=== PATIENT | male | born 1950 | race Caucasian/White ===

== ENCOUNTER 2022-07-02 09:15 | Emergency (ER) | payer MEDICARE ==
[~2022-07-02] VITALS: Ht 170.2 cm; Wt 77.3 kg
[~2022-07-02 09:15] MED LIST: HYDR25TA4 PO; LISI5TAB22 PO; PER5325T PO; SERT50TA PO
[2022-07-02 09:59] LABS: BASOPHILS % (AUTO) 0.5 % (0-1); EOSINOPHILS # (AUTO) 0.1 X10'3 (0-0.9); EOSINOPHILS % (AUTO) 0.7 % (0-6); HEMOGLOBIN 13.9 g/dl (14.0-17.9); LYMPHOCYTES # (AUTO) 0.8 X10'3 (1.1-4.8); LYMPHOCYTES % (AUTO) 9.8 % (21-51); MEAN CORPUSCULAR HEMOGLOBIN 30.1 PG (27.0-31.0); MEAN CORPUSCULAR HGB CONC 33.1 g/dL (33.0-36.5); MEAN PLATELET VOLUME 7.7 FL (7.4-10.4); MONOCYTES # (AUTO) 0.5 X10'3 (0-0.9); MONOCYTES % (AUTO) 6.3 % (2-12); NEUTROPHILS # (AUTO) 6.5 X10'3 (1.8-7.7); NEUTROPHILS % (AUTO) 82.7 % (42-75); PLATELET COUNT 258 X10'3 (140-440); RED BLOOD COUNT 4.62 X10'6 (4.70-6.10); RED CELL DISTRIBUTION WIDTH 13.7 % (11.5-14.5); WHITE BLOOD COUNT 7.9 X10'3 (4.5-11.0)
[2022-07-02 10:09] LABS: D-DIMER 1.18 MG/L FEU (0-0.50)
[2022-07-02 10:13] LABS: ALANINE AMINOTRANSFERASE 8 U/L (12-78); ALBUMIN 3.9 G/DL (3.4-5.0); ALBUMIN/GLOBULIN RATIO 1.3 (1.1-1.5); ALKALINE PHOSPHATASE 101 IU/L (46-116); ANION GAP 2 (8-16); ASPARTATE AMINO TRANSFERASE 17 U/L (10-37); BILIRUBIN,TOTAL 0.5 MG/DL (0.1-1.0); BLOOD UREA NITROGEN 16 MG/DL (7-18); BUN/CREATININE RATIO 13.9 (10.0-20.0); CHLORIDE 101 MMOL/L (99-107); CREATININE 1.15 MG/DL (0.60-1.10); GLUCOSE 114 MG/DL (70-104); POTASSIUM 4.2 MMOL/L (3.5-5.1); SODIUM 136 MMOL/L (135-145); TOTAL CARBON DIOXIDE 32.7 MMOL/L (24-32); eGFR 63 ML/MIN
[2022-07-02] MEDS ORDERED: iohexol 350MG/ML 100ml bottle IV ONE (10:43)
[2022-07-02 12:51] VITALS: BP 114/55
== END 2022-07-02 14:27 | disposition home or self-care (01) ==
LOC: ER 09:15
DX: R55 Syncope and collapse (principal)
CPT/HCPCS: 36415; 71045; 71275; 80053; 83735; 83880; 84484; 85025; 85379; 93005; 99285; J3490; Q9967

== ENCOUNTER 2024-09-01 14:23 | Emergency (ER) | payer MEDICARE ==
[~2024-09-01] VITALS: Ht 170.2 cm; Wt 72.0 kg
[~2024-09-01 14:23] MED LIST changes: +BUPR-94 PO; -HYDR25TA4 PO; -LISI5TAB22 PO; -PER5325T PO; +RIVA20TA PO; -SERT50TA PO; +TADA5TAB14 PO; +TRAZ300T2 PO
[2024-09-01 15:18] LABS: LEUKOCYTE ESTERASE ,URINE NEGATIVE (Neg); NITRITES, URINE NEGATIVE (Neg); OCCULT BLOOD,URINE NEGATIVE (Neg)
[2024-09-01 15:19] LABS: UA COLLECTION TYPE CLN CATCH MIDSTREAM
--- NOTE | 2024-09-01 15:53 | Physician Documentation ---
History of Present Illness Chief Complaint: See Chief Complaint Stated Complaint: BLOOD IN URINE Time Seen by MD: 14:48 HPI Patient comes in today with complaints of blood in his semen as well as abdominal pain in the left side of his abdomen with history of pseudocyst from a previous surgery. Patient states he has lost 5 lb over the last couple of days which is unusual for him. Patient states the blood in his semen has been going on for the last couple of months every time he ejaculates with a significant amount of blood in his semen. Patient denies any current chest pain or shortness of breath or nausea, vomiting, diarrhea. In his no other concern or complaint at this time. Medication Reconciliation Allergies: Coded Allergies: No Known Allergies (Unverified , 09/01/24) Scheduled Bupropion Hcl (Wellbutrin Xl), 1 TAB PO DAILY, (Reported) Rivaroxaban (Xarelto), 1 TAB PO DAILY, (Reported) Trazodone HCl (Trazodone HCl), 1 TAB PO HS, (Reported) Scheduled PRN Tadalafil (Tadalafil), 10 MG PO PRN PRN for ED, (Reported) Past Medical History Past Medical History: *CARDIOVASCULAR* Past Surgical History: heart valve surgery Lives In: Home Occupation: retired Review of Systems Constitutional: Denies: chills, fever, weakness Eyes: Denies: pain, blurred vision ENT: Denies: ear pain, nose pain, throat pain, mouth pain Respiratory: Denies: cough, shortness of breath Cardiovascular: Denies: chest pain, palpitations Gastrointestinal: Denies: abdominal pain, nausea, vomiting Genitourinary: Denies: burning, dysuria Male Genitalia: Denies: penile discharge, testicular pain Neurological: Denies: headache, dizziness Musculoskeletal: Denies: pain, swelling Integumentary: Denies: rash, lesions Allergic/Immunologic: Denies: hives, itching Hematologic/Lymphatic: Denies: no symptoms reported Psychiatric: Denies: depression, anxiety Physical Exam Vital Signs: Temperature: 98.4, Source: Temporal, Heart Rate: 61, Respiratory Rate: 16, BP: 127/65, Pulse Oximetry: 97, Weight: 72.000 Oxygen Flow Rate: 0 Physical Exam General: Awake and Alert, no acute distress. HEENT: Conjunctiva pink, Sclera clear, Mucus Membranes moist. Neck: Supple without masses and tenderness. Resp: Unlabored. Lungs clear to auscultation bilaterally. Heart: Regular Rate and rhythm, normal S1 and S2 without murmur, rub or gallop. Abdomen: Abdomen is soft, nondistended, patient does have guarding and rebound tenderness in the left abdomen with significant tenderness to palpation in that area. Patient has no CVA tenderness or suprapubic tenderness. Extremities: No cyanosis,clubbing or edema. Skin: Warm and Dry. Progress Results/Orders Results/Orders Completed Orders - EJ ALDRICH PAC Urinalysis, Cult If Indicated (09/01/24 15:02) Vital Signs 09/01/24 14:33 Temp 98.4 Pulse 61 Resp 16 B/P (MAP) 127/65 Pulse Ox 97 O2 Flow Rate 0 Laboratory Tests Test 09/01/24 15:03 Urine Specimen Description Cln catch midstream Urine Color Yellow Urine Clarity Clear Urine pH 6.0 Urine Specific [place] 1.020 Urine Protein Negative Urine Glucose (UA) Negative Urine Ketones Negative Urine Occult Blood Negative Urine Nitrite Negative Urine Bilirubin Negative Urine Urobilinogen 0.2 Urine Leukocyte Esterase Negative Urine Culture Indicated Not ind Volume Urine Centrifuged 10 ml Urine Comment EKG/XRAY/CT/US/VASC/MRI CT : Impression CAT SCAN Patient: JOAQUIN ANAND Medical Record: [id number] [facility] : 1950, Age: 74 Sex: Male Location: ER Patient Status: REG ER Service Date/Time: 09/01/241549 Ordering Physician: EJ ALDRICH PAC Exam: CT ABDOMEN PELVIS Indication: ABD PAIN/BLOOD IN SEMEN Technique: CT axial images of the abdomen and pelvis are obtained with intravenous contrast. Coronal and sagittal reformats were obtained. Radiation Dose Information: CTDI volume is 17.2 mGy. Dose-length product is 874 mGy*cm Comparison: None FINDINGS: Lung bases demonstrate no pleural effusion. Adrenal glands, spleen and pancreas unremarkable. No enhancing hepatic lesion. No CT evidence for cholelithiasis. No hydronephrosis. Stomach is partially distended. Small bowel loops are normal in caliber. Colonic diverticular disease. Moderate volume stool in the colon. Normal appendix. Abdominal aortic atherosclerotic disease and tortuosity. Bladder is partially distended. Bladder wall thickening with surrounding stranding. Prostate enlarged measuring 6.1 cm transversely. No free pelvic fluid. No inguinal lymphadenopathy. Left hip arthroplasty. Moderate degenerate changes right hip. Moderate bilateral sacroiliac degenerative joint disease. Interbody disc spacers at L2-3, L3-4. Left lateral fixation at L2, L3 and L4. Moderate to advanced lumbar degenerative disc disease. IMPRESSION: Prostatomegaly. Correlate with PSA levels. Bladder wall thickening with surrounding stranding may represent cystitis. Colonic diverticular disease. Other findings as described. Electronically Signed by:RENE LUNDY MD Date & Time: 09/01/241747 Dictated by: RENE LUNDY MD Dictation date and time: 09/01/241747 Primary Care Provider: NO PRIMARY CARE PROVIDER cc: EJ ALDRICH PAC ~ Medical Decision Making Findings Patient comes in today with complaints of blood in his semen as well as abdominal pain in the left side of his abdomen with history of pseudocyst from a previous surgery. Patient states he has lost 5 lb over the last couple of days which is unusual for him. Patient states the blood in his semen has been going on for the last couple of months every time he ejaculates with a significant amount of blood in his semen. Patient denies any current chest pain or shortness of breath or nausea, vomiting, diarrhea. In his no other concern or complaint at this time. Patient's labs were largely unremarkable other than mild anemia. Urinalysis showed absolutely no sign of blood or infection. Patient CT scan of abdomen did show large prostate and was otherwise largely unremarkable. Patient will follow up with primary care to get referral to Urology for further eval and treatment of enlarged prostate measuring approximately 6.1 cm across. Patient will return to ED with any worsening, concerning or changing symptoms. Departure Disposition: 01 HOME / SELF CARE / HOMELESS Impression: Primary Impression: Enlarged prostate Additional Impression: Blood in semen Condition: Stable Additional Instructions: Patient's labs were largely unremarkable other than mild anemia. Urinalysis showed absolutely no sign of blood or infection. Patient CT scan of abdomen did show large prostate and was otherwise largely unremarkable. Patient will follow up with primary care to get referral to Urology for further eval and treatment of enlarged prostate measuring approximately 6.1 cm across. Patient will return to ED with any worsening, concerning or changing symptoms. Referrals: NO PRIMARY CARE PROVIDER (PCP) Prescriptions Tamsulosin Hcl* (Flomax*) 0.4 Mg Cap.sr.24h 1 CAP PO DAILY, #10 CAP Prov: EJ ALDRICH 09/01/24 Additional Comment Additional Comment Patient declined admission at this time stating he wants to follow up outpatient with Urology. Signature Scribe Signature: No scribe Attestation: No scribe EJ ALDRICH PAC Sep 01, 2024 15:53
[2024-09-01 16:35] LABS: MEAN PLATELET VOLUME 8.2 FL (7.4-10.4); RED CELL DISTRIBUTION WIDTH 14.1 % (11.5-14.5)
[2024-09-01 16:47] LABS: CREATININE 1.09 MG/DL (0.60-1.10); TOTAL CARBON DIOXIDE 31.3 MMOL/L (24-32); eCRCL 56 ML/MIN; eGFR 66 ML/MIN
[2024-09-01] MEDS ORDERED: iohexol 300mg/ml 100ml inj. ONE (16:51)
--- NOTE | 2024-09-01 17:49 | RADIOLOGY REPORT ---
Indication: ABD PAIN/BLOOD IN SEMEN Technique: CT axial images of the abdomen and pelvis are obtained with intravenous contrast. Coronal and sagittal reformats were obtained. Radiation Dose Information: CTDI volume is 17.2 mGy. Dose-length product is 874 mGy*cm Comparison: None FINDINGS: Lung bases demonstrate no pleural effusion. Adrenal glands, spleen and pancreas unremarkable. No enhancing hepatic lesion. No CT evidence for cho lelithiasis. No hydronephrosis. Stomach is partially distended. Small bowel loops are normal in caliber. Colonic diverticular disease. Moderate volume stool in the colon. Normal appendix. Abdominal aortic atherosclerotic disease and tortuosity. Bladder is partially distended. Bladder wal l thickening with surrounding stranding. Prostate enlarged measuring 6.1 cm transversely. No free pel denisa fluid. No inguinal lymphadenopathy. Left hip arthroplasty. Moderate degenerate changes right hip. Moderate bilateral sacroiliac degenera tive joint disease. Interbody disc spacers at L2-3, L3-4. Left lateral fixation at L2, L3 and L4. Mo derate to advanced lumbar degenerative disc disease. IMPRESSION: Prostatomegaly. Correlate with PSA levels. Bladder wall thickening with surrounding stranding may represent cystitis. Colonic diverticular disease. Other findings as described.
[2024-09-01] MEDS ORDERED: TAMS-55 PO (17:59)
[2024-09-01 18:17] VITALS: BP 155/78; PULSE 58; RESP 16; TEMP 98.4; O2SAT 98
== END 2024-09-01 18:18 | disposition home or self-care (01) ==
LOC: ER 14:23
DX: N40.0 Benign prostatic hyperplasia without lower urinary tract symptoms (principal); R31.9 Hematuria, unspecified
CPT/HCPCS: 36415; 74177; 80048; 81003; 83690; 84484; 85025; 99285; Q9967